=== PATIENT | male | born 1945 | race Caucasian/White ===

== ENCOUNTER 2018-11-07 20:35 | Emergency (ER) | payer MEDICAID ==
[~2018-11-07] VITALS: Ht 170.2 cm; Wt 63.5 kg
[2018-11-07 21:06] VITALS: Ht 170.2 cm; Wt 63.5 kg
[2018-11-07 22:11] LABS: BASOPHIL % 0.5 % (0-2); PLATELET COUNT 151 x10^3mcL (130-400); RED CELL DISTRIBUTION WIDTH 13.7 % (11.5-14.5)
[2018-11-07 22:22] LABS: CHLORIDE SERUM 106 mmol/L (98-107)
[2018-11-07 22:40] LABS: CALCIUM 9.1 mg/dL (8.5-10.1); CARBON DIOXIDE 27.1 mmol/L (21-32); CREATININE SERUM 0.8 mg/dL (0.7-1.3); GLUCOSE SERUM 105 mg/dL (74-106); POTASSIUM SERUM 4.3 mmol/L (3.5-5.1); SODIUM SERUM 141 mmol/L (136-145)
[2018-11-07 22:43] LABS: ALBUMIN 3.8 g/dL (3.4-5.0); ALKALINE PHOSPHATASE 76 U/L (46-116); ALT/SGPT 40 U/L (16-63); AST/SGOT 15 U/L (15-37); BILIRUBIN TOTAL 0.5 mg/dL (0.20-1.00); TOTAL PROTEIN, SERUM 6.8 g/dL (6.4-8.2)
[2018-11-08 01:48] VITALS: BP 110/71
== END 2018-11-08 01:48 | disposition home or self-care (01) ==
LOC: ED 20:35
PROVIDERS: Emergency Medicine
DX: R07.89 Other chest pain (principal); I10 Essential (primary) hypertension; Z88.1 Allergy status to other antibiotic agents
CPT/HCPCS: G0480; J2270; J3490; J7030